=== PATIENT | female | born 1950 | race Caucasian/White ===

== ENCOUNTER 2022-11-06 12:49 | Outpatient (CLI) | payer MEDICARE | END 2022-11-06 12:50 | disposition home or self-care (01) | LOC: CSHULT 12:49 | PROVIDERS: ATTEND Otolaryngology Plastic Surgery within the Head & Neck | DX: R22.1 Localized swelling, mass and lump, neck (principal); Z98.890 Other specified postprocedural states; E07.9 Disorder of thyroid, unspecified | CPT/HCPCS: 76536 ==

== ENCOUNTER 2023-09-26 15:03 | Outpatient (CLI) | payer MEDICARE | END 2023-09-26 15:04 | disposition home or self-care (01) | LOC: CSHULT 15:03 | PROVIDERS: ATTEND Otolaryngology Plastic Surgery within the Head & Neck | DX: R22.1 Localized swelling, mass and lump, neck (principal); E07.9 Disorder of thyroid, unspecified | CPT/HCPCS: 76536 ==